=== PATIENT | male | born 1960 | race Caucasian/White ===

== ENCOUNTER 2017-01-17 01:00 | Inpatient (IN) | payer MEDICARE, MEDICAID ==
[2017-01-17] MEDS ORDERED: ZOLPIDEM TARTRATE 10 MG TABLET PO PRN (04:45)
[2017-01-17] MEDS ORDERED: INFLUENZA VIRUS VACCINE QVS 2017-18 (3YR+)/PF 60 MCG/0.5 ML SYRINGE IM ONE (05:30)
[2017-01-17 08:37] VITALS: BP 123/67
[2017-01-17] MEDS ORDERED: ACETAMINOPHEN 325 MG TABLET PO PRN (10:15)
[2017-01-17 16:00] VITALS: BP 140/78
[2017-01-17] MEDS: RisperiDONE 1 MG TABLET PO SCH (17:00)
[2017-01-18 02:04] VITALS: BP 138/74
[2017-01-18 08:11] VITALS: BP 121/83
[2017-01-18] MEDS: RisperiDONE 1 MG TABLET PO SCH ×2 (08:28→16:13)
[2017-01-18] MEDS: LORazepam 1 MG TABLET PO PRN ×2 (10:07→16:13)
[2017-01-18 16:00] VITALS: BP 140/87
[2017-01-19 00:03] VITALS: BP 138/89
[2017-01-19] MEDS: RisperiDONE 1 MG TABLET PO SCH ×2 (08:11→16:07)
[2017-01-19] MEDS: LORazepam 1 MG TABLET PO PRN ×2 (08:11→16:07)
[2017-01-19 08:16] VITALS: BP 138/78
[2017-01-19 08:20] LABS: BASOPHILS % (AUTO) 0.4 % (0.0-2.0); EOSINOPHILS % (AUTO) 2.6 % (1.0-6.0); HEMATOCRIT 42.1 % (41-53); LYMPHOCYTES # (AUTO) 1.2 K/uL (1.0-4.8); LYMPHOCYTES % (AUTO) 15.7 % (22.0-44.0); MEAN CORPUSCULAR HGB CONC 33.3 G/dL (31.0-37.0); MEAN CORPUSCULAR VOLUME 90 fL (80-100); MONOCYTES # (AUTO) 0.5 K/uL (0.1-1.0); NEUTROPHILS # (AUTO) 5.8 K/uL (1.8-7.7); NEUTROPHILS % (AUTO) 75.3 % (40.0-70.0); PLATELET COUNT (AUTO) 224 K/uL (150-450); RED BLOOD CELL COUNT(AUTO) 4.67 MIL/uL (4.50-5.90); RED CELL DISTRIBUTION WIDTH 14.7 % (11.5-14.5); WHITE BLOOD COUNT (AUTO) 7.7 K/uL (4.5-11.0)
[2017-01-19 08:54] LABS: HEMOGLOBIN A1C 5.7 % (4.5-6.2)
[2017-01-19 09:02] LABS: ALANINE AMINOTRANSFERASE 14 U/L (12-78); ALBUMIN 3.2 g/dL (3.4-5.0); ANION GAP 4 mmol/L (8-16); ASPARTATE AMINOTRANSFERASE 15 U/L (15-37); BILIRUBIN,TOTAL 0.2 mg/dL (0.1-1.0); CALCIUM, TOTAL 8.8 mg/dL (8.8-10.5); CARBON DIOXIDE 30 mmol/L (22-29); CHLORIDE 106 mmol/L (98-107); CREATINE KINASE, TOTAL 29 U/L (39-308); CREATININE 0.86 mg/dL (0.60-1.30); GLOMERULAR FILTR. RATE CALC > 60 mL/min (>60); POTASSIUM 3.9 mmol/L (3.5-5.1); SODIUM SERUM 140 mmol/L (136-145); TOTAL PROTEIN, SERUM 7.1 g/dL (6.4-8.2); UREA NITROGEN, BLOOD 13 mg/dL (7-18)
[2017-01-19 11:05] VITALS: BP 149/80
[2017-01-19 11:15] VITALS: BP 128/80
[2017-01-19] MEDS ORDERED: IBUPROFEN 600 MG TABLET PO PRN (11:45)
[2017-01-19 16:03] VITALS: BP 138/88
[2017-01-20 07:03] VITALS: BP 139/84
[2017-01-20 08:02] VITALS: BP 139/74
[2017-01-20 08:10] LABS: HEPATITIS Bs ANTIGEN SCREEN P Negative (Negative); HEPATITIS C AB SCREEN >11.0 s/co ratio (0.0-0.9)
[2017-01-20] MEDS: LORazepam 1 MG TABLET PO PRN (08:39)
[2017-01-20] MEDS: RisperiDONE 1 MG TABLET PO SCH ×2 (08:39→16:51)
[2017-01-20 16:27] VITALS: BP 133/90
[2017-01-20] MEDS ORDERED: RISP1 PO (16:39)
== END 2017-01-20 17:30 | disposition home or self-care (01) | DRG 885 ==
LOC: EDSTATUS 01:02 → B3A 04:58
PROVIDERS: ADMIT Psychiatry & Neurology Child & Adolescent Psychiatry; ATTEND Psychiatry & Neurology Child & Adolescent Psychiatry
DX: F29 Unspecified psychosis not due to a substance or known physiological condition (principal); Z91.19 Patient's noncompliance with other medical treatment and regimen; J44.9 Chronic obstructive pulmonary disease, unspecified; F31.9 Bipolar disorder, unspecified; B19.20 Unspecified viral hepatitis C without hepatic coma; F41.9 Anxiety disorder, unspecified; F17.200 Nicotine dependence, unspecified, uncomplicated; M54.9 Dorsalgia, unspecified; F10.10 Alcohol abuse, uncomplicated; Y90.9 Presence of alcohol in blood, level not specified; Z59.0 Homelessness
CPT/HCPCS: 80074; 82306; 82607; 82746; 83036; 84439; 84443; 90471